=== PATIENT | female | born 1960 | race Caucasian/White ===

== ENCOUNTER 2023-09-03 13:14 | Outpatient (AMB) | payer BC, SELFPAY ==
[2023-09-03 13:37] VITALS: BP 122/70; PULSE 86; O2SAT 95; BMI 22.0
--- NOTE | 2023-09-03 13:37 | MHC.OFFVIS ---
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 The patient is a 63 year woman with tobacco dependency presenting with an abnormal CT scan of the chest. Apparently back in the fall the patient developed COVID. After that she had multiple respiratory infections requiring multiple courses of antibiotics and prednisone. She also has a rescue inhaler. Ultimately the patient improved in her respiratory status now back to baseline. In the meantime she has been participating in the lung cancer screening program. She had a CT scan back in May 2022 which I personally reviewed demonstrating ground-glass nodular densities throughout primarily in the upper lung zones and also evidence of bronchitis and air trapping. This findings are very suggestive of respiratory bronchiolitis interstitial lung disease from smoking. A more recently in 06/10/2023 she had a repeat CT scan now showing a cluster of nodular densities in the lingula. This could be left over from an infectious process although the patient is high risk for cancer in view of her smoking history. The nodular densities greater than 8 mm in size and therefore she should have a repeat CT scan in 6 months. Will go ahead and request blood work to assess her for different conditions 2nd resulting pneumonitis of the lungs. The patient understands she needs to quit smoking because of the issues of the likely respiratory bronchiolitis from the smoking. The patient did try hypnosis that was not effective. In addition to that, the patient has nicotine patches that she can try as well. She understands she needs to quit and she wants to be able to quit although she has had a hard time. She is also dealing with depression anxiety right now and she is trying to work on those issues 1st. [facility] Medical History (Updated 09/03/23 @ 22:31 by Hank Chong MD) Pulmonary nodules Tobacco dependence Pneumonitis Review of Systems Const Denies fever(s) Eyes Reports as per HPI ENT Denies change in voice Card Denies chest pain Resp Reports cough and Denies wheezing GI Reports no additional complaints Musc Reports no additional complaints Skin/Breast Denies rash Neuro Reports no additional complaints Javier/Lymph Denies lymphadenopathy Aller/Immun Denies wheezing Physical Exam Vital Signs: Last Vital Signs Pulse 86 09/03/23 13:37 BP 122/70 09/03/23 13:37 Pulse Ox 95 09/03/23 13:37 Oxygen Delivery Method Room Air 09/03/23 13:37 BMI result Body Mass Index 22.0 Const General: comfortable HEENT Head: Yes normocephalic Neck Neck: Yes supple Chest Chest palpation & inspection: normal inspection of the chest Resp Effort & Inspection: normal respiratory effort Auscultation: diminished lung sounds Cardio Heart sounds: S1 normal heart sound present and S2 normal heart sound present GI Palpation (GI): Soft to palpation Skin General skin exam: no rashes or lesions noted Extrem General: Yes no clubbing, cyanosis or edema Assessment & Plan Assessment & Plan (1) Pneumonitis: Code(s): J98.4 - Other disorders of lung Category: Medical (2) Tobacco dependence: Code(s): F17.200 - Nicotine dependence, unspecified, uncomplicated Category: Medical (3) Pulmonary nodules: Code(s): R91.8 - Other nonspecific abnormal finding of lung field Category: Medical Plan tobacco cessation ANSHUL as needed bloodwork repeat CT chest 6 months from previous for 8mm pulmonary nodules F/U Dec 2023 Orders: Orders Cyclic Citrullinated Peptide Today J98.4 - Other disorders of lung EPI Reflex Titer and Pattern Today J98.4 - Other disorders of lung Immunoglobulin E Today J98.4 - Other disorders of lung CT chest wo IV con 3 Months J98.4 - Other disorders of lung, R91.8 - Other nonspecific abnormal finding of lung field Hypersensitive Pneumonitis Prf Today J98.4 - Other disorders of lung, R91.8 - Other nonspecific abnormal finding of lung field Complete Blood Count Auto Diff Today J98.4 - Other disorders of lung Immunoglobulins,IgG IgA IgM Today J98.4 - Other disorders of lung Coding Level of Care Code New Pt Level 4 (16632) Diagnoses Pneumonitis J98.4 Tobacco dependence F17.200 Pulmonary nodules R91.8 Time Spent (min) 40
== END 2023-09-03 14:13 | disposition home or self-care (01) ==
PROVIDERS: PCP Family Medicine; Referring Provider Family Medicine; Visit Provider Hospitalist
DX: J98.4 Other disorders of lung (principal); F17.200 Nicotine dependence, unspecified, uncomplicated; R91.8 Other nonspecific abnormal finding of lung field
CPT/HCPCS: 99204

== ENCOUNTER 2023-09-03 13:14 | Outpatient (REF) | payer BC, SELFPAY ==
[2023-09-03 14:39] LABS: MANUAL DIFF FLAG NO
[2023-09-03 14:56] LABS: Basophils Percent Auto 0.7 % (0-2); Eosinophils Percent Auto 0.7 % (0-4); Hematocrit 37.4 % (37.0-47.0); Hemoglobin 12.7 g/dl (12.0-16.0); Imm Gran Abs Auto 0.01 X10*3/uL (0.00-0.03); Imm Gran Pct Auto 0.2 % (0.0-0.4); Lymphocytes Absolute Auto 1.4 X10*3/uL (1.2-4.9); Lymphocytes Percent Auto 34.7 % (20-40); Mean Corpuscular Hemoglobin 31.8 pg (27.0-33.0); Mean Corpuscular Volume 93.7 fL (80.0-98.0); Mean Platelet Volume 9.7 fL (9.4-12.3); Monocytes Absolute Auto 0.5 X10*3/uL (0.1-1.2); Monocytes Percent Auto 11.8 % (2-11); Neutrophils Absolute Auto 2.1 x10*3/uL (2.0-8.3); Neutrophils Percent Auto 51.9 % (45-73); Platelet Count 196 X10*3/uL (160-400); Red Blood Count 3.99 X10*6/uL (4.20-5.50); Red Cell Distribution Width 11.8 % (11.0-16.0); White Blood Count 4.1 X10*3/uL (4.8-10.8)
[2023-09-04 23:19] LABS: Immunoglobulin E 37 kU/L (<OR=114)
[2023-09-05 06:04] LABS: IgA 110 mg/dL (70-320); IgG 671 mg/dL (600-1540); IgM 344 mg/dL (50-300)
[2023-09-07 11:13] LABS: Cyclic Citrullinated Peptide <16 UNITS
[2023-09-07 14:44] LABS: Anti Nuclear Antibody Screen NEGATIVE (NEGATIVE)
[2023-09-14 16:18] LABS: Asperg fumigatus Precip Abs NEGATIVE (NEGATIVE); Micropoly faeni Abs NEGATIVE (NEGATIVE); Pigeon serum Abs NEGATIVE (NEGATIVE); Saccharo pora viridis Abs NEGATIVE (NEGATIVE); Thermo candidus Abs NEGATIVE (NEGATIVE); Thermoa vulgaris #1 NEGATIVE (NEGATIVE)
== END 2023-09-03 13:15 | disposition home or self-care (01) ==
LOC: HO.LAB 13:14
PROVIDERS: PCP Family Medicine; Referring Provider Family Medicine; Visit Provider Hospitalist
DX: J98.4 Other disorders of lung (principal); R91.8 Other nonspecific abnormal finding of lung field
CPT/HCPCS: 36415; 82784; 82785; 85025; 86038; 86200; 86331; 86606; 86609

== ENCOUNTER 2023-12-14 13:56 | Outpatient (AMB) | payer BC, SELFPAY ==
--- NOTE | 2023-12-14 14:03 | A.OFFVIS_ITS ---
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 Allergies amoxicillin Allergy (Severe, Verified 12/14/23 14:06) Difficulty Breathing codeine Allergy (Verified 12/14/23 14:06) Unknown erythromycin base Allergy (Verified 12/14/23 14:06) Unknown Sulfa (Sulfonamide Antibiotics) Allergy (Verified 12/14/23 14:06) Unknown cefaclor [From Ceclor] Adverse Reaction (Severe, Verified 12/14/23 14:06) Difficulty Breathing nitrofurantoin [From Macrobid] Adverse Reaction (Severe, Verified 12/14/23 14:06) Difficulty Breathing Penicillins Adverse Reaction (Severe, Verified 12/14/23 14:06) Difficulty Breathing HPI Comments Details: The patient is a 63 year woman with tobacco dependency presenting with an abnormal CT scan of the chest. Apparently back in the fall the patient developed COVID. After that she had multiple respiratory infections requiring multiple courses of antibiotics and prednisone. She also has a rescue inhaler. Ultimately the patient improved in her respiratory status now back to baseline. In the meantime she has been participating in the lung cancer screening program. She had a CT scan back in May 2022 which I personally reviewed demonstrating ground-glass nodular densities throughout primarily in the upper lung zones and also evidence of bronchitis and air trapping. This findings are very suggestive of respiratory bronchiolitis interstitial lung disease from smoking. A more recently in 06/10/2023 she had a repeat CT scan now showing a cluster of nodular densities in the lingula. This could be left over from an infectious process although the patient is high risk for cancer in view of her smoking history. The nodular densities greater than 8 mm in size and therefore she should have a repeat CT scan in 6 months. Will go ahead and request blood work to assess her for different conditions 2nd resulting pneumonitis of the lungs. The patient understands she needs to quit smoking because of the issues of the likely respiratory bronchiolitis from the smoking. The patient did try hypnosis that was not effective. In addition to that, the patient has nicotine patches that she can try as well. She understands she needs to quit and she wants to be able to quit although she has had a hard time. She is also dealing with depression anxiety right now and she is trying to work on those issues 1st. 12/14/2023 the patient is here for a pulmonary follow-up visit. Since we last spoke the patient was sick over the summer and she did get a course of doxycycline prednisone. She partially improved but then symptoms worsened again. She did not get her CT scan improved. Therefore will continue with the lung cancer screening program. She did undergo a chest x-ray demonstrating some granulomas. The patient did have blood work. We did review it. No evidence of any connective tissue disease or allergic findings to suggest any explanation for the pneumonitis. Could be related to the smoking. She is open to quitting smoking. She would like to quit. She is willing to try Chantix. She does have a history of depression. She is aware that she needs to make sure that she has people that are aware that she is taking the medicine initially develops any worsening depressive symptoms she is to stop the medicine ASYA and call. Still having some clear thick mucus typically in the morning and late morning she is coughing it up. Denies any nasal congestion although she does have cobblestoning. The patient recently had dental procedure. However, when she feels dental procedure she can try Wixela daily to see if this provides some relief. She can also use Mucinex in the meantime to help with mucus clearance. [facility] Medical History (Updated 12/14/23 @ 11:38 by Dai Chaidez MA) Cervical vertebral fusion Major depressive disorder Insomnia Hypothyroidism Hyperlipidemia Hyperkalemia Ground glass opacity present on imaging of lung Greater trochanteric bursitis of both hips Chronic obstructive lung disease Arthralgia Pulmonary nodules Tobacco dependence Pneumonitis Review of Systems Const Denies fever(s) Eyes Reports as per HPI ENT Denies change in voice Card Denies chest pain Resp Reports cough and Denies wheezing GI Reports no additional complaints Musc Reports no additional complaints Skin/Breast Denies rash Neuro Reports no additional complaints Javier/Lymph Denies lymphadenopathy Aller/Immun Denies wheezing Physical Exam Vital Signs: Last Vital Signs Pulse 80 12/14/23 14:04 BP 128/60 12/14/23 14:04 Pulse Ox 99 12/14/23 14:04 Oxygen Delivery Method Room Air 12/14/23 14:04 BMI result Body Mass Index 23.1 Const General: comfortable HEENT Head: Yes normocephalic Neck Neck: Yes supple Chest Chest palpation & inspection: normal inspection of the chest Resp Effort & Inspection: normal respiratory effort Auscultation: diminished lung sounds Cardio Heart sounds: S1 normal heart sound present and S2 normal heart sound present GI Palpation (GI): Soft to palpation Skin General skin exam: no rashes or lesions noted Extrem General: Yes no clubbing, cyanosis or edema Assessment & Plan Assessment & Plan (1) Pneumonitis: Code(s): J98.4 - Other disorders of lung Category: Medical (2) Tobacco dependence: Code(s): F17.200 - Nicotine dependence, unspecified, uncomplicated Category: Medical (3) Pulmonary nodules: Code(s): R91.8 - Other nonspecific abnormal finding of lung field Category: Medical Plan tobacco cessation: start chantix, monitor for depression ANSHUL as needed start Wixela LDCT F/U 6 months Medications: New fluticasone propion-salmeterol 250-50 mcg/dose (Wixela Inhub) 1 inh inhalation Q12H 60 ea 11RF 30 days varenicline (Chantix Starting Month Box) PO PER PKG DIR 42 ea 0RF Coding Level of Care Code Est Pt Level 4 (46795) Diagnoses Pneumonitis J98.4 Tobacco dependence F17.200 Pulmonary nodules R91.8 Time Spent (min) 16
[2023-12-14 14:04] VITALS: BP 128/60; PULSE 80; O2SAT 99; BMI 23.1
== END 2023-12-14 14:29 | disposition home or self-care (01) ==
PROVIDERS: PCP Family Medicine; Referring Provider Family Medicine; Visit Provider Hospitalist
DX: J98.4 Other disorders of lung (principal); F17.200 Nicotine dependence, unspecified, uncomplicated; R91.8 Other nonspecific abnormal finding of lung field
CPT/HCPCS: 99214

== ENCOUNTER → 2023-12-14 13:56 | Outpatient (BNVA) | payer BC, SELFPAY | PROVIDERS: PCP Family Medicine; Visit Provider Hospitalist | DX: J98.4 Other disorders of lung (principal) ==

== ENCOUNTER 2023-12-17 13:06 | Outpatient (AMB) | payer BC, SELFPAY ==
[2023-12-17 13:15] VITALS: BP 110/58; PULSE 98; O2SAT 97; BMI 22.7
--- NOTE | 2023-12-17 13:15 | HO.NEPHOV_ITS ---
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 Accompanied by: Self / Same As Patient Allergies amoxicillin Allergy (Severe, Verified 12/17/23 13:16) Difficulty Breathing codeine Allergy (Verified 12/17/23 13:16) Unknown erythromycin base Allergy (Verified 12/17/23 13:16) Unknown Sulfa (Sulfonamide Antibiotics) Allergy (Verified 12/17/23 13:16) Unknown cefaclor [From Ceclor] Adverse Reaction (Severe, Verified 12/17/23 13:16) Difficulty Breathing nitrofurantoin [From Macrobid] Adverse Reaction (Severe, Verified 12/17/23 13:16) Difficulty Breathing Penicillins Adverse Reaction (Severe, Verified 12/17/23 13:16) Difficulty Breathing Medication List - Last Reconciled 12/17/23 by Vargas Mayberry MD albuterol sulfate 90 mcg/actuation inhalation PRN fluticasone propion-salmeterol 250-50 mcg/dose (Wixela Inhub) 1 inh inhalation Q12H 30 days levothyroxine 150 mcg PO DAILY mirtazapine 7.5 mg PO BEDTIME PRN rosuvastatin 5 mg PO DAILY varenicline (Chantix Starting Month Box) PO PER PKG DIR HPI Comments Details: Tara is a pleasant 63-year-old woman with a history of hypothyroidism and hyperlipidemia who was found to have mild hyperkalemia. Serum potassium was 5.3 back in July of 2023. Reviewed repeat potassium was 5.6 in November of 2023 and hence this referral. She has no known renal issues. She is not on any medications that could increase serum potassium. 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 She smokes about 1 pack per day. No polyuria polydipsia. She has some diarrhea on and off. No constipation. No nausea vomiting. No weight loss. No fever no edema. No rash. [facility] Medical History (Updated 12/17/23 @ 13:37 by Vargas Mayberry MD) Cervical vertebral fusion Major depressive disorder Insomnia Hypothyroidism Hyperlipidemia Hyperkalemia Ground glass opacity present on imaging of lung Greater trochanteric bursitis of both hips Chronic obstructive lung disease Arthralgia Pulmonary nodules Tobacco dependence Pneumonitis Physical Exam Vital Signs: Last Vital Signs Pulse 98 12/17/23 13:15 BP 110/58 L 12/17/23 13:15 Pulse Ox 97 12/17/23 13:15 Oxygen Delivery Method Room Air 12/17/23 13:15 BMI result Body Mass Index 22.7 Appears comfortable at rest neck supple no JVD mucous moist. Neck lungs entry equal no rales heart S1-S2 heard no gallop no rub abdomen soft nontender bowel sounds heard neuro alert awake oriented no asterixis extremities no edema. Results Reviewed Nephrology Results: Hgb 12.7 g/dl (12.0-16.0) 09/03/23 WBC 4.1 X10*3/uL (4.8-10.8) L 09/03/23 Plt Count 196 X10*3/uL (160-400) 09/03/23 Sodium Pending 12/17/23 Potassium Pending 12/17/23 Chloride Pending 12/17/23 Carbon Dioxide Pending 12/17/23 BUN Pending 12/17/23 Creatinine Pending 12/17/23 Calcium Pending 12/17/23 Assessment & Plan Assessment & Plan (1) Hyperkalemia: Code(s): E87.5 - Hyperkalemia Category: Medical Plan 63-year-old woman with essentially normal renal function has mild hyperkalemia. She has no significant difficulty acidosis. Renal function is normal. No thrombocytosis or polycythemia. No evidence of increased cell turnover. Pseudo hyperkalemia should be ruled out in this woman. Obtain potassium levels without using a tourniuquet Check serum aldosterone and plasma renin activity. Further workup will be based on the outcome of the above Orders: Orders Aldosterone Today E87.5 - Hyperkalemia Basic Metabolic Panel Today E87.5 - Hyperkalemia Renin Today E87.5 - Hyperkalemia Coding Level of Care Code New Pt Level 4 (80804) Diagnoses Hyperkalemia E87.5
== END 2023-12-17 13:40 | disposition home or self-care (01) ==
PROVIDERS: PCP Family Medicine; Referring Provider Family Medicine; Visit Provider Internal Medicine Hypertension Specialist
DX: E87.5 Hyperkalemia (principal)
CPT/HCPCS: 99204

== ENCOUNTER 2023-12-17 13:06 | Outpatient (REF) | payer BC, SELFPAY ==
[2023-12-17 14:53] LABS: Anion Gap 11 (12-20); Blood Urea Nitrogen 17 mg/dL (9-16); Calcium 9.8 mg/dL (8.4-10.2); Carbon Dioxide 31 mmol/L (22-29); Chloride 104 mmol/L (96-108); Estimated Glomerular Filt Rate > 60; Glucose Random 102 mg/dL (60-115); Potassium 4.1 mmol/L (3.3-5.1); Sodium 142 mmol/L (135-145)
[2023-12-23 16:58] LABS: Renin 2.42 ng/mL/h (0.25-5.82)
== END 2023-12-17 13:07 | disposition home or self-care (01) ==
LOC: HO.LAB 13:06
PROVIDERS: PCP Family Medicine; Referring Provider Family Medicine; Visit Provider Internal Medicine Hypertension Specialist
DX: E87.5 Hyperkalemia (principal)
CPT/HCPCS: 36415; 80048; 82088; 84244

== ENCOUNTER 2024-01-11 14:28 | Outpatient (AMB) | payer BC, SELFPAY ==
[2024-01-11 14:49] VITALS: BP 114/64; PULSE 99; O2SAT 96; BMI 22.5
--- NOTE | 2024-01-11 14:49 | HO.NEPHOV_ITS ---
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 Accompanied by: Self / Same As Patient Allergies amoxicillin Allergy (Severe, Verified 01/11/24 14:51) Difficulty Breathing codeine Allergy (Verified 01/11/24 14:51) Unknown erythromycin base Allergy (Verified 01/11/24 14:51) Unknown Sulfa (Sulfonamide Antibiotics) Allergy (Verified 01/11/24 14:51) Unknown cefaclor [From Ceclor] Adverse Reaction (Severe, Verified 01/11/24 14:51) Difficulty Breathing nitrofurantoin [From Macrobid] Adverse Reaction (Severe, Verified 01/11/24 14:51) Difficulty Breathing Penicillins Adverse Reaction (Severe, Verified 01/11/24 14:51) Difficulty Breathing Medication List - Last Reconciled 01/11/24 by Vargas Mayberry MD albuterol sulfate 90 mcg/actuation inhalation PRN fluticasone propion-salmeterol 250-50 mcg/dose (Wixela Inhub) 1 inh inhalation Q12H 30 days levothyroxine 150 mcg PO DAILY mirtazapine 7.5 mg PO BEDTIME PRN rosuvastatin 5 mg PO DAILY varenicline (Chantix Starting Month Box) PO PER PKG DIR HPI Comments Details: Tara is a pleasant 63-year-old woman with a history of hypothyroidism and hyperlipidemia who was found to have mild hyperkalemia. Serum potassium was 5.3 back in July of 2023. Reviewed repeat potassium was 5.6 in November of 2023 and hence this referral. She has no known renal issues. She is not on any medications that could increase serum potassium. 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 She smokes about 1 pack per day. No polyuria polydipsia. She has some diarrhea on and off. No constipation. No nausea vomiting. No weight loss. No fever no edema. No rash. 01/11/24 Doing better Has a sense of incomplete emptying of bladder [facility] Medical History (Updated 12/17/23 @ 13:37 by Vargas Mayberry MD) Cervical vertebral fusion Major depressive disorder Insomnia Hypothyroidism Hyperlipidemia Hyperkalemia Ground glass opacity present on imaging of lung Greater trochanteric bursitis of both hips Chronic obstructive lung disease Arthralgia Pulmonary nodules Tobacco dependence Pneumonitis Physical Exam Vital Signs: Last Vital Signs Pulse 99 01/11/24 14:49 BP 114/64 01/11/24 14:49 Pulse Ox 96 01/11/24 14:49 Oxygen Delivery Method Room Air 01/11/24 14:49 BMI result Body Mass Index 22.5 Results Reviewed Nephrology Results: Hgb 12.7 g/dl (12.0-16.0) 09/03/23 WBC 4.1 X10*3/uL (4.8-10.8) L 09/03/23 Plt Count 196 X10*3/uL (160-400) 09/03/23 Sodium 142 mmol/L (135-145) 12/17/23 Potassium 4.1 mmol/L (3.3-5.1) 12/17/23 Chloride 104 mmol/L (96-108) 12/17/23 Carbon Dioxide 31 mmol/L (22-29) H 12/17/23 BUN 17 mg/dL (9-16) H 12/17/23 Creatinine 0.84 mg/dL (0.5-1.4) 12/17/23 Calcium 9.8 mg/dL (8.4-10.2) 12/17/23 Assessment & Plan Assessment & Plan (1) Hyperkalemia: Code(s): E87.5 - Hyperkalemia Category: Medical Plan 63-year-old woman with essentially normal renal function has mild hyperkalemia. She has no significant difficulty acidosis. Renal function is normal. No thrombocytosis or polycythemia. No evidence of increased cell turnover. Pseudo hyperkalemia is still a possibility Obtain potassium levels without using a tourniuquet if K remains high serum aldosterone and plasma renin activity were normal Check renal and bladder USG due the sense of incomplete empyting Orders: Orders Complete Blood Count Auto Diff 3 Months E87.5 - Hyperkalemia US renal BI Today I10 - Essential (primary) hypertension Basic Metabolic Panel 3 Months E87.5 - Hyperkalemia Coding Level of Care Code Est Pt Level 4 (99005) Diagnoses Hyperkalemia E87.5
== END 2024-01-11 15:09 | disposition home or self-care (01) ==
PROVIDERS: PCP Family Medicine; Visit Provider Internal Medicine Hypertension Specialist
DX: E87.5 Hyperkalemia (principal)
CPT/HCPCS: 99213

== ENCOUNTER → 2024-01-11 14:28 | Outpatient (BNVA) | payer BC, SELFPAY | PROVIDERS: PCP Family Medicine; Visit Provider Internal Medicine Hypertension Specialist ==

== ENCOUNTER 2024-05-16 09:37 | Outpatient (AMB) | payer BC, SELFPAY ==
[2024-05-16 09:39] VITALS: BP 98/62; PULSE 97; O2SAT 97; BMI 22.7
--- NOTE | 2024-05-16 09:39 | HO.NEPHOV ---
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 Accompanied by: Self / Same As Patient Allergies amoxicillin Allergy (Severe, Verified 05/16/24 09:45) Difficulty Breathing codeine Allergy (Verified 05/16/24 09:45) Unknown erythromycin base Allergy (Verified 05/16/24 09:45) Unknown Sulfa (Sulfonamide Antibiotics) Allergy (Verified 05/16/24 09:45) Unknown cefaclor [From Ceclor] Adverse Reaction (Severe, Verified 05/16/24 09:45) Difficulty Breathing nitrofurantoin [From Macrobid] Adverse Reaction (Severe, Verified 05/16/24 09:45) Difficulty Breathing Penicillins Adverse Reaction (Severe, Verified 05/16/24 09:45) Difficulty Breathing Medication List - Last Reconciled 05/16/24 by Vargas Mayberry MD albuterol sulfate 90 mcg/actuation inhalation PRN fluticasone propion-salmeterol 250-50 mcg/dose (Wixela Inhub) 1 inh inhalation Q12H 30 days levothyroxine 150 mcg PO DAILY mirtazapine 7.5 mg PO BEDTIME PRN varenicline tartrate (Chantix Starting Month Box) PO PER PKG DIR HPI Comments Details: Tara is a pleasant 63-year-old woman with a history of hypothyroidism and hyperlipidemia who was found to have mild hyperkalemia. Serum potassium was 5.3 back in July of 2023. Reviewed repeat potassium was 5.6 in November of 2023 and hence this referral. She has no known renal issues. She is not on any medications that could increase serum potassium. She works as a high school chemistry teacher no history of any alcohol abuse although she drinks alcohol 4 times a week. She smokes about 1 pack per day. No polyuria polydipsia. She has some diarrhea on and off. No constipation. No nausea vomiting. No weight loss. No fever no edema. No rash. 01/11/24 Doing better Has a sense of incomplete emptying of bladder 05/16/2024. Overall doing well. No new complaints. [facility] Medical History (Updated 01/12/24 @ 09:54 by Vargas Mayberry MD) Cervical vertebral fusion Major depressive disorder Insomnia Hypothyroidism Hyperlipidemia Hyperkalemia Ground glass opacity present on imaging of lung Greater trochanteric bursitis of both hips Chronic obstructive lung disease Arthralgia Pulmonary nodules Tobacco dependence Pneumonitis Physical Exam Vital Signs: Last Vital Signs Pulse 97 05/16/24 09:39 BP 98/62 05/16/24 09:39 Pulse Ox 97 05/16/24 09:39 Oxygen Delivery Method Room Air 05/16/24 09:39 BMI result Body Mass Index 22.7 Comfortable Neck supple no JVD. Lungs entry equal no rales. Heart S1-S2 heard no gallop or rub. Abdomen soft nontender. Neuro alert awake oriented. No asterixis. Extremities no edema. Results Reviewed Results Reviewed: Potassium 4.9 on May 12, 2024 Nephrology Results: Hgb 12.7 g/dl (12.0-16.0) 09/03/23 WBC 4.1 X10*3/uL (4.8-10.8) L 09/03/23 Plt Count 196 X10*3/uL (160-400) 09/03/23 Sodium 142 mmol/L (135-145) 12/17/23 Potassium 4.1 mmol/L (3.3-5.1) 12/17/23 Chloride 104 mmol/L (96-108) 12/17/23 Carbon Dioxide 31 mmol/L (22-29) H 12/17/23 BUN 17 mg/dL (9-16) H 12/17/23 Creatinine 0.84 mg/dL (0.5-1.4) 12/17/23 Calcium 9.8 mg/dL (8.4-10.2) 12/17/23 Assessment & Plan Assessment & Plan (1) Hyperkalemia: Code(s): E87.5 - Hyperkalemia Category: Medical Plan 63-year-old woman with essentially normal renal function has mild hyperkalemia. She has no significant difficulty acidosis. Renal function is normal. No thrombocytosis or polycythemia. No evidence of increased cell turnover. Pseudo hyperkalemia serum aldosterone and plasma renin activity were normal Repeat potassium is normal at 4.9. Orders: Orders Basic Metabolic Panel 1 Month E87.5 - Hyperkalemia Coding Level of Care Code Est Pt Level 4 (11168) Diagnoses Hyperkalemia E87.5
--- OUTSIDE RECORDS SUMMARY | 2024-05-16 10:27 | XMS_ITS | Clinical Summary ---
Author Organization [facility] [address] [facility] Address [address] [place] [address] Phone Care Team Providers Care It Operations Analyst Name Role Phone Rivas, Gary Primary Care Provider [phone] Allergies Active Allergy Reactions Criticality Noted Date Comments Amoxicillin Anaphylaxis High 03/10/2024 Cefaclor Anaphylaxis High 03/10/2024 Nitrofurantoin Monohyd/M-Cryst Anaphylaxis High 02/20 Penicillins Anaphylaxis High 03/10/2024 Sulfa (Sulfonamide Antibiotics) Anaphylaxis High Medications levothyroxine (SYNTHROID, LEVOTHROID) 150 mcg tablet Take 1 tablet (150 mcg total) by mouth 1 (one) time each day. 4 Active albuterol HFA (PROAIR HFA ; PROVENTIL HFA ; VENTOLIN HFA) 90 mcg/actuation inhaler Inhale 2 puffs by mouth every 4 (four) hours. 4 Active clobetasoL (TEMOVATE) 0.05 % ointment Apply topically if needed. 4 Active dicyclomine (BENTYL) 10 mg capsuleIndication s:Irritable bowel syndrome with constipation Take 1 capsule (10 mg total) by mouth 4 (four) times a day if needed (abdominal pain). 60 capsule 5 5 10/13/19 Active Active Problems Problem Noted Date Diagnosed Date Recurrent major depression 08/09/2014 Lymphadenopathy 10/04/2010 Encounters Date Type Department Care Team Description 04/15/2024 9:30 AM EST Office Visit Gastroenterology - [address] [phone] Lucie Dahl MD Irritable bowel syndrome with constipation (Primary Dx); Irritable bowel syndrome with both constipation and diarrhea 03/24/2024 Telephone Gastroenterology - [address] [phone] Franca Butler MA 03/22/2024 8:33 AM EST Anesthesia Event [facility] [address] [place] [phone] Wale Gilmore MD 03/22/2024 7:07 AM EST - 03/22/2024 11:59 PM EST Hospital Encounter [facility] [address] [place] [phone] Lucie Dahl MD Change in bowel habits; Diarrhea Discharge Disposition: Home or Self Care 03/04/2024 Telephone Gastroenterology - [address] [phone] Lucie Dahl MD from Last 3 Months Surgical History Surgery Date Site/Laterality Comments CERVICAL SPINE SURGERY HAND SURGERY Left COLONOSCOPY W/ POLYPECTOMY 03/22/2024 SSA x1 COLONOSCOPY 03/31/2014 Dr. Andino- ESOPHAGOGASTRODUODENOSCOPY 03/31/2014 nl COLONOSCOPY W/ BIOPSIES 02/06/2009 HP x 1 COLONOSCOPY W/ POLYPECTOMY 02/27/2020 HP x 1 Medical History Medical History Date Comments IBS (irritable bowel syndrome) Diverticulitis 2018 Eczema Hypothyroid Social History Tobacco Use Types Packs/Day Years Used Date Smoking Tobacco: Every Day Cigarettes Tobacco Cessation:Ready to Q uit: Not Asked; Counseling Given: Not Answered Alcohol Use Standard Drinks/Week Comments Yes 0 (1 standard drink = 0.6 oz pur e alcohol) Interpersonal Safety Answer Date Record ed Physical Abuse 03/22/2024 Verbal Abuse 03/22/2024 Comments No Sex and Gender Information Value Date Recorded Sex Assigned at Not on file Legal Sex Female 3:51 PM EST Gender Identity Not on file Sexual Orientation Not on file 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 Not on file Not on file Not on file Obstetrics History Last Filed Vital Signs Vital Sign Reading Time Taken Comments Blood Pressure 115/74 03/22/2024 9:12 AM EST Pulse 77 03/22/2024 9:12 AM EST Temperature 36.8 ??C (98.2 ??F) 03/22/2024 9:12 AM ES T Respiratory Rate 20 03/22/2024 9:12 AM EST Oxygen Saturation 100% 03/22/2024 9:12 AM EST Inhaled Oxygen Concentration - - Weight 59 kg (130 lb) 03/22/2024 8:21 AM EST Height 162.6 cm (5' 4 ) 03/22/2024 8:21 AM EST Body Mass Index 22.31 03/22/2024 8:21 AM EST Plan of Treatment Upcoming Encounters Date Type Department Care Team (Late st Contact Info) Description 08/09/2024 9:20 AM EDT Office Visit Gastroenterology - [address] [facility] [address] [place] [phone] Lucie Dahl MD [address] [facility] [address] [place] [address] Health Maintenance Due Date Last Done Comments Breast Cancer Screening 1960 Cervical Cancer Screening: Pap Smear 06/04/1980 Zoster Vaccines (1 of 2) 06/04/2009 RSV Immunization Patients 60+ Years Old (1 - Risk 60-74 years 1-dose series) 2019 Pneumococcal Vaccine: 50+ Years (2 of 2 - PCV) 10/13/2020 10/14/2019 Pneumococcal Vaccine: Pediatrics (0 to 5 Years) and At-Risk Patients (6 to 64 Years) (2 of 2 - PCV) 10/13/2020 10/14/2019 COVID-19 Vaccine (2023- season) 2023 12/23/2021, 02/11/2021, 06/24/2020, Additional history exists Influenza Vaccine (#1) 2023 Cholesterol Screening (Lipid Panel) 01/06/2024 Depression Screening 01/06/2024 HIV Screening 01/06/2024 Hepatitis C Screening 01/06/2024 Social Influencers of Health Screening 01/06/2024 DTaP,Tdap,and Td Vaccines (2 - Td or Tdap) 07/29/2025 07/30/2015 Colorectal Cancer Screening: Colonoscopy 03/24/2034 03/24/2024, 03/22/2024, 02/27/2020 HIB Vaccines Aged Out No longer eligi ble based on patient's age to complete this topic HPV Vaccines Aged Out No longer eligi ble based on patient's age to complete this topic Hepatitis A Vaccines Aged Out No long er eligible based on patient's age to complete this topic Hepatitis B Vaccines Aged Out No long er eligible based on patient's age to complete this topic IPV Vaccines Aged Out No longer eligi ble based on patient's age to complete this topic MMR Vaccines Aged Out No longer eligi ble based on patient's age to complete this topic Meningococcal ACWY Vaccine Aged Out N o longer eligible based on patient's age to complete this topic Meningococcal B Vacine Aged Out No lo nger eligible based on patient's age to complete this topic RSV Immunization Patients Under 20 months Aged Out No longer eligible based on patient's age to complete this topic Varicella Vaccines Aged Out No longer eligible based on patient's age to complete this topic Procedures Procedure Name Priority Date/Time Associated Diagnosis Comments COLONOSCOPY Routine 03/24/2024 9:13 AM EST COLONOSCOPY Routine 03/22/2024 8:51 AM EST Change in bowel habits Diarrhea TISSUE EXAM Routine 03/22/2024 8:43 AM EST Change in bowel habits Diarrhea from Last 3 Months Results * COLONOSCOPY (03/24/2024 9:13 AM EST) Only the most recent of2 resultswithin the time period is included. Anatomical Region Laterality Modality Endoscopy us Historical Provider GI~PROCEDURE ORDERABLES F inal Result * Tissue exam (03/22/2024 8:43 AM EST) Final Diagnosis Polyp, ascending colon, polypectomy: Sessile serrated lesion, negative for dysplasia. 03/24/2024 10:17 AM EST [facility] Gross Description A. Large Intestine, Right/Ascend ing Colon, polyp x1: Labeled ascending colon polyp x 1 . Received in formalin are eight irregular farr mucosal tissue fragments, ranging from less than 0.1 cm to 0.2 cm in greatest dimension, which are wrapped in paper and submitted in toto in two cassettes, four pieces each, multiple levels on each slide. JANETH 03/24/2024 10:17 AM EST [facility] Disclaimer Unless otherwise specified, all tissue is 10% NB formalin fixed and paraffin embedded. 03/24/2024 10:17 AM EST [facility] Tissue Ascending colon structure / Unknown 03/22/2024 8:43 AM EST 03/22/2024 11:07 AM EST us Lucie Dahl MD LAB PATHOLOGY ORDERABLES Final Result [facility] [address] [place] [address], [place] [phone] from Last 3 Months Insurance [facility] Care Teams It Operations Analyst Relationship Specialty Start Date End Date Jay Rivas DO [address] [place] [address] PCP - General Family Medicine 03/22/24
== END 2024-05-16 09:58 | disposition home or self-care (01) ==
PROVIDERS: PCP Family Medicine; Visit Provider Internal Medicine Hypertension Specialist
DX: E87.5 Hyperkalemia (principal)
CPT/HCPCS: 99214

== ENCOUNTER 2024-06-17 10:16 | Outpatient (AMB) | payer BC, SELFPAY ==
[2024-06-17 10:26] VITALS: BP 110/60; PULSE 88; O2SAT 98; BMI 22.5
--- NOTE | 2024-06-17 10:26 | A.OFFVIS_ITS ---
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 Allergies amoxicillin Allergy (Severe, Verified 06/17/24 10:29) Difficulty Breathing codeine Allergy (Verified 06/17/24 10:29) Unknown erythromycin base Allergy (Verified 06/17/24 10:29) Unknown Sulfa (Sulfonamide Antibiotics) Allergy (Verified 06/17/24 10:29) Unknown cefaclor [From Ceclor] Adverse Reaction (Severe, Verified 06/17/24 10:29) Difficulty Breathing nitrofurantoin [From Macrobid] Adverse Reaction (Severe, Verified 06/17/24 10:29) Difficulty Breathing Penicillins Adverse Reaction (Severe, Verified 06/17/24 10:29) Difficulty Breathing HPI Comments Details: The patient is a 64 year woman with tobacco dependency presenting with an abnormal CT scan of the chest. Apparently back in the fall the patient developed COVID. After that she had multiple respiratory infections requiring multiple courses of antibiotics and prednisone. She also has a rescue inhaler. Ultimately the patient improved in her respiratory status now back to baseline. In the meantime she has been participating in the lung cancer screening program. She had a CT scan back in May 2022 which I personally reviewed demonstrating ground-glass nodular densities throughout primarily in the upper lung zones and also evidence of bronchitis and air trapping. This findings are very suggestive of respiratory bronchiolitis interstitial lung disease from smoking. A more recently in 06/10/2023 she had a repeat CT scan now showing a cluster of nodular densities in the lingula. This could be left over from an infectious process although the patient is high risk for cancer in view of her smoking history. The nodular densities greater than 8 mm in size and therefore she should have a repeat CT scan in 6 months. Will go ahead and request blood work to assess her for different conditions 2nd resulting pneumonitis of the lungs. The patient understands she needs to quit smoking because of the issues of the likely respiratory bronchiolitis from the smoking. The patient did try hypnosis that was not effective. In addition to that, the patient has nicotine patches that she can try as well. She understands she needs to quit and she wants to be able to quit although she has had a hard time. She is also dealing with depression anxiety right now and she is trying to work on those issues 1st. 12/14/2023 the patient is here for a pulmonary follow-up visit. Since we last spoke the patient was sick over the summer and she did get a course of doxycycline prednisone. She partially improved but then symptoms worsened again. She did not get her CT scan improved. Therefore will continue with the lung cancer screening program. She did undergo a chest x-ray demonstrating some granulomas. The patient did have blood work. We did review it. No evidence of any connective tissue disease or allergic findings to suggest any explanation for the pneumonitis. Could be related to the smoking. She is open to quitting smoking. She would like to quit. She is willing to try Chantix. She does have a history of depression. She is aware that she needs to make sure that she has people that are aware that she is taking the medicine initially develops any worsening depressive symptoms she is to stop the medicine ASYA and call. Still having some clear thick mucus typically in the morning and late morning she is coughing it up. Denies any nasal congestion although she does have cobblestoning. The patient recently had dental procedure. However, when she feels dental procedure she can try Wixela daily to see if this provides some relief. She can also use Mucinex in the meantime to help with mucus clearance. 06/17/2024 the patient is here for a pulmonary follow-up visit. The patient overall has been doing okay. She is taking part in the lung cancer screening program. She does have these ground-glass nodular densities bilaterally right more than left. Appeared to be related to smoking-related interstitial lung disease such as RB ILD or DI P. Still unfortunately she continues to smoke cigarettes. She does have a quit date however. Hopefully she can quit altogether. She is willing to try Chantix. She is going to be monitoring closely for any symptoms of depression and she will stop the medication. The patient has not been using the Wixela. She is doing otherwise pretty well. She can actually just use her rescue inhaler this time as needed. If she has any worsening respiratory symptoms she can always call for an earlier assessment otherwise follow-up in 8-12 months. [facility] Medical History (Updated 01/12/24 @ 09:54 by Vargas Mayberry MD) Cervical vertebral fusion Major depressive disorder Insomnia Hypothyroidism Hyperlipidemia Hyperkalemia Ground glass opacity present on imaging of lung Greater trochanteric bursitis of both hips Chronic obstructive lung disease Arthralgia Pulmonary nodules Tobacco dependence Pneumonitis Social History (Updated 06/17/24 @ 10:33 by ABILIO Alvarado) Patient Tobacco Use Status: Current everyday Tobacco user Cigarette Packs Per Day: 0.5 Cigarettes Per Day: 10 Review of Systems Const Denies fever(s) Eyes Reports as per HPI ENT Denies change in voice Card Denies chest pain Resp Reports cough and Denies wheezing GI Reports no additional complaints Musc Reports no additional complaints Skin/Breast Denies rash Neuro Reports no additional complaints Javier/Lymph Denies lymphadenopathy Aller/Immun Denies wheezing Physical Exam Vital Signs: Last Vital Signs Pulse 88 06/17/24 10:26 BP 110/60 06/17/24 10:26 Pulse Ox 98 06/17/24 10:26 Oxygen Delivery Method Room Air 06/17/24 10:26 BMI result Body Mass Index 22.5 Const General: comfortable HEENT Head: Yes normocephalic Neck Neck: Yes supple Chest Chest palpation & inspection: normal inspection of the chest Resp Effort & Inspection: normal respiratory effort Auscultation: diminished lung sounds Cardio Heart sounds: S1 normal heart sound present and S2 normal heart sound present GI Palpation (GI): Soft to palpation Skin General skin exam: no rashes or lesions noted Extrem General: Yes no clubbing, cyanosis or edema Assessment & Plan Assessment & Plan (1) Pneumonitis: Code(s): J98.4 - Other disorders of lung Category: Medical (2) Tobacco dependence: Code(s): F17.200 - Nicotine dependence, unspecified, uncomplicated Category: Medical (3) Pulmonary nodules: Code(s): R91.8 - Other nonspecific abnormal finding of lung field Category: Medical Plan tobacco cessation: start chantix, monitor for depression ANSHUL as needed Wixela LDCT F/U 6-12 months Medications: New varenicline tartrate (Chantix) 1 mg PO BID 56 tabs 2RF Coding Level of Care Code Est Pt Level 4 (98715) Complex EM visit Add On G2211 Diagnoses Pneumonitis J98.4 Tobacco dependence F17.200 Pulmonary nodules R91.8 Time Spent (min) 17
== END 2024-06-17 10:52 | disposition home or self-care (01) ==
LOC: HO.HPS 10:17
PROVIDERS: PCP Family Medicine; Visit Provider Hospitalist
DX: J98.4 Other disorders of lung (principal); F17.200 Nicotine dependence, unspecified, uncomplicated; R91.8 Other nonspecific abnormal finding of lung field
CPT/HCPCS: 99214

== ENCOUNTER → 2024-06-17 10:16 | Outpatient (BNVA) | payer BC, SELFPAY | PROVIDERS: PCP Family Medicine; Visit Provider Hospitalist | DX: J98.4 Other disorders of lung (principal) ==